=== PATIENT | male | born 1965 | race African-American/Black ===

== ENCOUNTER 2019-04-24 08:23 | Emergency (ER) | payer OTHER ==
[2019-04-24 08:30] VITALS: BP 126/75; PULSE 82; TEMP 98.5; BMI 33.3
[2019-04-24] MEDS ORDERED: KETOROLAC TROMETHAMINE 60 MG/2 ML VIAL IM ONE (09:15)
[2019-04-24] MEDS ORDERED: diazePAM 5 MG TABLET PO ONE (09:15)
[2019-04-24] MEDS ORDERED: diazePAM 5 MG TABLET ONE (09:27)
[2019-04-24] MEDS ORDERED: KETOROLAC TROMETHAMINE 60 MG/2 ML VIAL ONE (09:27)
--- NOTE | 2019-04-24 09:40 | PDOC ---
History of Present Illness - General Chief Complaint: Chronic pain Stated Complaint: LOWER BACK PAIN Time Seen by Provider: 04/24/19 08:48 History Source: Patient Exam Limitations: No Limitations - History of Present Illness Initial Comments: 04/24/19 09:303 year 53 year old male with medical history of asthma, htn and surgical history of lumbar surgery, 2002 presents with exacerbation of lower back pain radiating down to left leg. Patient denies numbness or tingling in distal limbs. Taking ibuprofen with no relief of pain. 04/24/19 09:42 Severity: reports: mild Pain Location: reports: back Method of Injury: No: unknown (10') Modifying Factors: improves with: pain medication Loss of Consciousness: no loss of consciousness Associated Symptoms (Fall): muscle spasms Past History - Travel Traveled outside of the country in the last 30 days: No Close contact w/someone who was outside of country & ill: No - Past Medical History Allergies/Adverse Reactions: Allergies Allergy/AdvReac Type Severity Reaction Status Date / Time No Known Allergies Allergy Verified 04/24/19 08:30 Home Medications: Ambulatory Orders Amlodipine Besylate [Norvasc -] 5 mg PO DAILY 04/24/19 Cyclobenzaprine HCl [Flexeril 10 mg] 10 mg PO HS PRN #7 tablet 04/24/19 Naproxen 500 mg PO BID #14 tablet 04/24/19 Anemia: Yes COPD: No HTN: Yes - Suicide/Smoking/Psychosocial Hx Smoking History: Never smoked Hx Alcohol Use: Yes Drug/Substance Use Hx: No Substance Use Type: None Trauma Specific PMHX - Complaint Specific PMHX Arthritis: No Back Injury: Yes Neck Injury: No Hx Sacro Iliac Joint Dysfunction: No Review of Systems - Review of Systems Able to Perform ROS?: Yes Is the patient limited Sami proficient: No Constitutional: No: Chills, Fever HEENTM: No: Nose Congestion, Throat Swelling Respiratory: No: Orthopnea, Wheezing Cardiac (ROS): No: Chest Pain, Edema, Lightheadedness : No: Incontinence, Pain Musculoskeletal: Yes: Back Pain Integumentary: No: Change in Color Neurological: No: Headache, Numbness, Paresthesia *Physical Exam - Vital Signs Last Vital Signs Temp Pulse Resp BP Pulse Ox 98.5 F 82 18 126/75 98 04/24/19 08:26 04/24/19 08:26 04/24/19 08:26 04/24/19 08:26 04/24/19 08:26 - Physical Exam General Appearance: Yes: Nourished, Appropriately Dressed HEENT: positive: TMs Normal, Pharynx Normal Neck: positive: Supple. negative: Lymphadenopathy (R), Lymphadenopathy (L) Respiratory/Chest: positive: Lungs Clear, Normal Breath Sounds Cardiovascular: positive: Regular Rhythm, Regular Rate Musculoskeletal: positive: Vertebral Tenderness (in lumbar region) Extremity: positive: Normal Capillary Refill Neurologic: positive: senior manufacturing technician II-XII NML intact, Fully Oriented Medical Decision Making - Medical Decision Making 04/24/19 09:43 53 year old male with medical history of asthma, htn and surgical history of lumbar surgery, 2002 presents with exacerbation of lower back pain radiating down to left leg. analgesia given in fast track area *DC/Admit/Observation/Transfer Diagnosis at time of Disposition: Back pain Qualifiers: Back pain location: low back pain Chronicity: chronic Back pain laterality: bilateral Sciatica presence: with sciatica Sciatica laterality: sciatica of left side Qualified Code(s): M54.42 - Lumbago with sciatica, left side; G89.29 - Other chronic pain - Discharge Dispostion Disposition: HOME Condition at time of disposition: Good Decision to Admit order: No - Prescriptions Prescriptions: Cyclobenzaprine HCl [Flexeril 10 mg] 10 mg PO HS PRN #7 tablet PRN Reason: Back Pain Naproxen 500 mg PO BID #14 tablet - Referrals Referrals: Jarret Almaguer DO [Staff Physician] - Call tomorrow (call for appointment today ) - Patient Instructions Printed Discharge Instructions: DI for Low Back Pain Additional Instructions: Activity as tolerated Do not remain in bed for more than 72 hours at a time Call orthopedic for follow up appointment - Post Discharge Activity Forms/Work/School Notes: Back to Work
== END 2019-04-24 10:54 | disposition home or self-care (01) ==
LOC: JERFT 08:23
PROC: 3E0233Z Introduction of Anti-inflammatory into Muscle, Percutaneous Approach (ICD-10-PCS; principal; 2019-04-24)
DX: M54.42 Lumbago with sciatica, left side (principal); G89.29 Other chronic pain; I10 Essential (primary) hypertension
CPT/HCPCS: 96372; 99282-25

== ENCOUNTER 2020-07-22 11:23 | Emergency (ER) | payer OTHER ==
[2020-07-22 11:40] VITALS: BP 138/78; PULSE 85; TEMP 97.9; BMI 33.0
[2020-07-22] MEDS ORDERED: KETOROLAC TROMETHAMINE 30 MG/1 ML VIAL IM ONE (12:29)
[2020-07-22] MEDS ORDERED: KETOROLAC TROMETHAMINE 30 MG/1 ML VIAL ONE (12:39)
== END 2020-07-22 12:42 | disposition home or self-care (01) ==
LOC: JERFT 11:23 → JER 11:23 → JERFT 12:42
PROC: 3E0233Z Introduction of Anti-inflammatory into Muscle, Percutaneous Approach (ICD-10-PCS; principal; 2020-07-22)
DX: M54.42 Lumbago with sciatica, left side (principal)
CPT/HCPCS: 99284-25

== ENCOUNTER 2023-08-10 11:44 | Emergency (ER) | payer OTHER ==
[2023-08-10] MEDS ORDERED: METHOCARBAMOL 750 MG TABLET PO STA (12:20)
[2023-08-10] MEDS ORDERED: KETOROLAC TROMETHAMINE 30 MG/1 ML VIAL IM ONE (12:20)
[2023-08-10] MEDS ORDERED: LIDOCAINE 5% TOPICAL PATCH TP ONE (12:46)
[2023-08-10] MEDS ORDERED: KETOROLAC TROMETHAMINE 30 MG/1 ML VIAL IVPUSH ONE (12:49)
[2023-08-10] MEDS ORDERED: LIDOCAINE 4% PATCH TP ONE ×2 (12:50→12:51)
[2023-08-10] MEDS ORDERED: METHOCARBAMOL 500 MG TABLET ONE (12:51)
[2023-08-10] MEDS ORDERED: KETOROLAC TROMETHAMINE 30 MG/1 ML VIAL ONE (12:51)
[2023-08-10 13:31] LABS: BASO % 0.7 % (0-2.0); EOS % 0.9 % (0-4.5); HEMATOCRIT 42.4 % (35.4-49); HEMOGLOBIN 13.6 GM/dL (11.7-16.9); LYMPH % 34.4 % (8-40); MCH 27.4 pg (25.7-33.7); MEAN CELL VOLUME 85.5 fl (80-96); MEAN PLT VOLUME 7.2 fl (7.5-11.1); MONO % 10.7 % (3.8-10.2); NEUT % 53.3 % (42.8-82.8); PLATELET COUNT 208 10^3/uL (134-434); RBC 4.95 M/mm3 (4.00-5.60); RDW 13.3 % (11.9-15.9); WHITE BLOOD COUNT 4.1 K/mm3 (4.0-10.0)
[2023-08-10 13:39] LABS: INR 1.02 (0.83-1.09); PROTHROMBIN TIME (PATIENT) 11.8 SEC (9.7-13.0)
[2023-08-10 13:42] LABS: ACTIVATED PTT 33.7 SECONDS (25.2-36.5)
[2023-08-10 13:48] LABS: POTASSIUM 4.1 mmol/L (3.5-5.1)
[2023-08-10 13:52] LABS: ALBUMIN 3.7 g/dl (3.4-5.0); CALCIUM 9.3 mg/dL (8.5-10.1); MAGNESIUM 1.9 mg/dL (1.8-2.4)
[2023-08-10 13:53] LABS: BLOOD UREA NITROGEN 12.2 mg/dL (7-18)
[2023-08-10 13:57] LABS: BILIRUBIN,TOTAL 0.3 mg/dL (0.2-1); TOT PROT 6.9 g/dl (6.4-8.2)
[2023-08-10 16:04] VITALS: BP 147/90; PULSE 79; RESP 16; TEMP 97.9; BMI 33.0
[2023-08-10] MEDS ORDERED: LIDOCAINE PATCH REMOVAL MC ONE ×2 (22:00)
== END 2023-08-10 15:10 | disposition home or self-care (01) ==
LOC: JER 11:44
PROC: 3E033NZ Introduction of Analgesics, Hypnotics, Sedatives into Peripheral Vein, Percutaneous Approach (ICD-10-PCS; principal; 2023-08-10)
DX: R07.89 Other chest pain (principal); M79.602 Pain in left arm; M54.11 Radiculopathy, occipito-atlanto-axial region
CPT/HCPCS: 36415; 71046-TC-FY; 80053; 82550; 82553; 83690; 83735; 84484; 85025; 85610; 85730; 93005; 93010; 96374; 99285-25